=== PATIENT | female | born 1995 | race Caucasian/White ===

== ENCOUNTER 2023-02-02 07:25 | Day surgery (SDC) | payer MEDICAID ==
[2023-02-01 10:41] LABS: HCG,QUAL RESULT NEGATIVE (NEGATIVE)
[~2023-02-02] VITALS: Ht 177.8 cm; Wt 97.5 kg
[~2023-02-02 07:25] MED LIST: CEFAZOLIN SOD 2 GM in D5W 50 ML IV ONE
[2023-02-02] MEDS ORDERED: PROPOFOL 200MG/ 20ML VIAL (DIPRIVAN) IV ONE (10:00)
[2023-02-02] MEDS ORDERED: LIDOCAINE/EPI 1% 1:100000 20 ML VIAL ONE (10:00)
[2023-02-02] MEDS ORDERED: NS IRRIG SOLN 1000 ML IR ONE (10:00)
[2023-02-02] MEDS ORDERED: MIDAZOLAM HCL 5 MG/5 ML VIAL ONE (10:18)
[2023-02-02] MEDS ORDERED: fentaNYL CITRATE/PF 100 MCG/2 ML AMP ONE (10:18)
[2023-02-02] MEDS ORDERED: ONDANSETRON HCL 4 MG/2 ML VIAL IVP PRN ×2 (11:45→12:00)
[2023-02-02] MEDS ORDERED: HYDROmorphone 1 MG/ML INJ. CARTRIDGE IVP PRN (11:45)
[2023-02-02] MEDS ORDERED: ACETAMINOPHEN 500 MG TABLET PO PRN (12:00)
[2023-02-02] MEDS ORDERED: NALOXONE HCL 0.4 MG/ML AMP (NARCAN) IVP PRN (12:00)
[2023-02-02] MEDS ORDERED: ONDANSETRON 4 MG ODT TAB PO PRN (12:00)
[2023-02-02] MEDS ORDERED: ACETAMINOPHEN/CODEINE 300 MG-30 MG TABLET PO PRN (12:00)
[2023-02-02] MEDS ORDERED: ACETAMINOPHEN I.V. 1000 MG 100 ML IV ONE ×2 (12:15→12:17)
[2023-02-02 13:51] VITALS: O2SAT 100
[2023-02-02 16:24] VITALS: BP_SYST 110; PULSE 76; RESP 16; TEMP 97.4
== END 2023-02-02 13:24 | disposition home or self-care (01) ==
LOC: SMU 07:25 → SDS 07:25
PROVIDERS: ATTEND Otolaryngology
DX: R22.0 Localized swelling, mass and lump, head (principal)
CPT/HCPCS: 84703; 87081; 21014; 13131; 88304; J0690; J2250; J2704; J3010; J7060; J0131